=== PATIENT | male | born 1960 | race Two or more races ===

== ENCOUNTER 2018-12-19 20:44 | Emergency (ER) | payer OTHER ==
[~2018-12-19] VITALS: Ht 188 cm; Wt 104.3 kg
[2018-12-19] MEDS ORDERED: PROPECIA1 MG (21:17)
[2018-12-19] MEDS ORDERED: COZAAR50 MG (21:17)
== END 2018-12-20 05:48 | disposition home or self-care (01) ==
LOC: ER 20:44 → CPU-OBS 20:56 → ER 20:56
DX: R07.89 Other chest pain (principal); R20.8 Other disturbances of skin sensation
CPT/HCPCS: G0378; G0379; 93005